=== PATIENT | female | born 1950 | race Caucasian/White ===

== ENCOUNTER 2016-10-16 13:34 | Emergency (ER) | payer OTHER, MEDICARE ==
[~2016-10-16] VITALS: Ht 167.6 cm; Wt 61.2 kg
[2016-10-16 14:02] LABS: ABSOLUTE NEUTROPHILS 3.6 thou/uL (1.4-8.2); BASOPHILS 0.6 % (0.0-2.0); EOSINOPHILS 3.8 % (0.0-3.0); HEMATOCRIT 42.3 % (37.0-47.0); HEMOGLOBIN 14.4 gm/dL (12.0-15.0); LYMPHOCYTES 32.8 % (24.0-44.0); MCH 33.2 pg (26.0-34.0); MCV 97.6 fL (80.0-100.0); MONOCYTES 8.8 % (1.0-8.0); PLATELET COUNT 225 thou/uL (150-400); RBC 4.33 mil/uL (4.20-5.00); RDW 14.4 % (10.5-14.5); WBC 6.6 thou/uL (4.0-11.0)
[2016-10-16 14:02] LABS: ABG SAMPLE TYPE ARTERIAL; BE(vivo) -1.6 mmol/L (-2 to +3); LACTATE 2.65 mmol/L (0.5-2.0); O2(CT) 18.7 mL/dL (15.0-23.0); O2Hb 92.1 % (92.0-98.0); PCO2 33.9 mmHg (35.0-45.0); PO2 74.7 mmHg (80.0-100.0); STICK SITE R.RADIAL; sO2 95.5 % (92.0-98.0)
[2016-10-16 14:04] LABS: MANUAL DIFF NO
[2016-10-16 14:10] LABS: CALCIUM 9.5 mg/dL (8.5-10.1); CREATININE 0.8 mg/dL (0.6-1.0); POTASSIUM 3.9 mmol/L (3.5-5.1)
[2016-10-16] MEDS ORDERED: PROVENTIL HFA6.7 G1 INH (15:18)
[2016-10-16] MEDS ORDERED: PREDNISONE 20 M20 MG PO (15:18)
[2016-10-16] MEDS ORDERED: TUSSIONEX PENN473 ML PO (15:18)
[2016-10-16 16:00] VITALS: BP 132/79
== END 2016-10-16 16:01 | disposition home or self-care (01) ==
LOC: ER 13:34 → EDBD 13:34 → ER 16:01
PROVIDERS: Emergency Medicine
DX: J04.0 Acute laryngitis (principal); F17.210 Nicotine dependence, cigarettes, uncomplicated

== ENCOUNTER → 2019-12-19 | Outpatient (CLI) | payer OTHER, MEDICARE ==
[~2019-12-19] MED LIST: PREDNISONE 20 M20 MG PO; PROVENTIL HFA6.7 G1 INH; TUSSIONEX PENN473 ML PO
== END ==
LOC: RAD 12:47
PROVIDERS: ATTEND Psychiatry & Neurology Neuromuscular Medicine
DX: M51.36 Other intervertebral disc degeneration, lumbar region (principal); M41.86 Other forms of scoliosis, lumbar region; M43.26 Fusion of spine, lumbar region; M47.816 Spondylosis without myelopathy or radiculopathy, lumbar region; I70.0 Atherosclerosis of aorta

== ENCOUNTER → 2020-07-14 | Outpatient (CLI) | payer OTHER ==
[2020-07-14 11:28] LABS: CREATININE 1.1 mg/dL (0.6-1.0)
== END | disposition home or self-care (01) ==
LOC: CAT 09:53
PROVIDERS: ATTEND Specialist
DX: M54.5 Low back pain (principal); M79.605 Pain in left leg; G95.89 Other specified diseases of spinal cord

== ENCOUNTER → 2020-08-27 | Outpatient (CLI) | payer OTHER ==
[~2020-08-27] MED LIST changes: +DESYREL300 MG PO; +EFFEXOR XR150 MG PO; +KLONOPIN1 MG PO; +MIRALAX119 GM PO; +VALACYCLOVIR1000 MG PO; +VITAMIN D350 MCG PO; +ZYRTEC10 M4 PO
== END ==
LOC: LAB 07:32
PROVIDERS: ATTEND Specialist
DX: Z01.812 Encounter for preprocedural laboratory examination (principal); Z20.822 Contact with and (suspected) exposure to COVID-19

== ENCOUNTER → 2020-08-29 | Outpatient (CLI) | payer OTHER | LOC: CAT 09:16 | PROVIDERS: ATTEND Specialist | DX: M51.36 Other intervertebral disc degeneration, lumbar region (principal); M43.16 Spondylolisthesis, lumbar region; M48.061 Spinal stenosis, lumbar region without neurogenic claudication; M47.815 Spondylosis without myelopathy or radiculopathy, thoracolumbar region; M41.86 Other forms of scoliosis, lumbar region ==

== ENCOUNTER 2020-09-01 06:09 | Inpatient (IN) | payer OTHER ==
[2020-08-27 12:53] LABS: HEMATOCRIT 48.3 % (37.0-47.0); HEMOGLOBIN 15.6 gm/dL (12.0-15.0); MCH 29.4 pg (26.0-34.0); MCHC 32.2 g/dL (28.0-37.0); MCV 91.4 fL (80.0-100.0); RBC 5.29 mil/uL (4.20-5.00); RDW 15.3 % (10.5-14.5); WBC 7.7 thou/uL (4.0-11.0)
[2020-08-27 12:54] LABS: URINE BILIRUBIN NEGATIVE (Negative); URINE BLOOD NEGATIVE (Negative); URINE CLARITY CLEAR; URINE COLOR YELLOW; URINE GLUCOSE-RANDOM* NEGATIVE (Negative); URINE KETONES NEGATIVE (Negative); URINE LEUKOCYTES-REFLEX NEGATIVE (Negative); URINE NITRITE-REFLEX NEGATIVE (Negative); URINE PROTEIN (DIPSTICK) NEGATIVE (Negative); URINE UROBILINOGEN 0.2 E.U./dl (0.2-1.0)
[2020-08-27 13:08] LABS: APTT 26.4 Seconds (24.5-32.8); INR 0.94; PROTIME 10.3 Seconds (9.3-11.4)
[2020-08-27 13:15] LABS: ALBUMIN 3.9 g/dL (3.4-5.0); CALCIUM 9.6 mg/dL (8.5-10.1); CREATININE 0.9 mg/dL (0.6-1.0); POTASSIUM 4.5 mmol/L (3.5-5.1); TOTAL BILIRUBIN 0.3 mg/dL (0.2-1.0); TOTAL PROTEIN 6.8 g/dL (6.4-8.2)
--- NOTE | 2020-08-27 16:35 | EKG ---
[address] [address] ELECTROCARDIOGRAM REPORT Name: BOUBACAR GARCIA Room #: PRE IN ..#: [id number] Admission: Attend Phys: Brent Olson, Discharge: Date of : 46 Report #: [id number] [facility] Test Date: 2020-08-27 Test Time: 12:47:17 Pat Name: BOUBACAR GARCIA Department: Room: Gender: F Branch Account Executive: KOBI : 1950 Requested By: Brent Olson Order Number: [id number] MD: Catrachito Marrero Measurements Intervals [place] Rate: 98 P: 41 WA: 169 QRS: -86 QRSD: 87 T: 77 QT: 360 QTc: 460 Interpretive Statements Sinus rhythm Abnormal R-wave progression, late transition Inferior infarct, old No previous ECG available for comparison Electronically Signed On 08-27-2020 16:34:56 CDT by Catrachito Marrero [email or web address] <ELECTRONICALLY SIGNED> By: Catrachito Marrero MD, [facility] 08/27/20 1634 1247 1247 Catrachito Marrero MD, FACC /EPI
[2020-09-01] VITALS (7 sets, daily range): BP systolic 115–133; BP diastolic 70–92
[~2020-09-01] VITALS: Ht 167.6 cm; Wt 64.4 kg
--- NOTE | 2020-09-01 18:24 | NUR ---
ASSUMED PT CARE AT 1530. PT IS DROWSY. PT HAD LAMINECTOMY TODAY. STARTED KEYBOARD OPERATOR PUMP DURING TRANSFER FROM PACU DUE TO HAVING DIFFICULTY SETTING KEYBOARD OPERATOR IN PACU. PT HAS SHAUNA THOMPSON AND DRAIN 75ML TODAY. PT HAS 2L O2 NC. PT HAS CONTINUOUS PULSE OX MONITOR. GIVEN APPLE JUICE PER PT REQUEST BUT VERY SLEEPY. PT SISTER AT THE BEDSIDE. PT ON THE BED SLEEPING, BED ON THE LOWEST POSITION, SIDE RAILS UP, CALL LIGHT WITHIN REACH. WILL CONTINUE TO MONITOR PT. FOLLOW POC.
--- NOTE | 2020-09-01 23:00 | NUR ---
ASSUMED PT CARE AT AROUND 1920 HRS. PT OBSERVED SLEEPING ON AND OFF, C/O 7/10 PAIN. PHILLIPS T D/D WITH GOOD U/O.MORPHINE AVIONICS ELECTRICAL ENGINEER PUMP AVAILABLE. FELICITY NOTED TO LOWER BACK WITH SANGUINOUS DRAINAGE, ICE ESTEE BEING USED, DRSG INTACT.CARE HANDED OVER TO LAURA CARRILLO AT AROUND 2300.
--- NOTE | 2020-09-01 23:23 | NUR ---
PT RESTING IN BED. PT VERBALIZED FEELING GROGGY AND HAVING A HARDER TIME WAKING UP FROM THIS PROCEDURE. PT DECLINED KLONOPIN AND TRAZADONE. PT IS AOX4. PT DISCUSSED CONCERN OF TAKING TO [facility] WITH FELL CUTTER PUMP, PT REMINDED THE PUMP WOULD NOT ALLOW HER TO GIVE HERSELF TO [facility] AND THAT HER O2 LEVEL WAS ALSO BEING MONITORED. IVF INTACT. TEDS ON. BACK DRESSING DRY AND INTACT, FELICITY BLOODY DRAINAGE. PHILLIPS TO DD. O2 PER NC. BED ALARM ON.
--- NOTE | 2020-09-02 00:34 | NUR ---
RN FROM 4S AND RN FROM 5N MONITORING DIRECTOR INVESTOR RELATIONS SETTINGS AND ADJUSTMENTS.
--- NOTE | 2020-09-02 03:02 | NUR ---
PT AWAKENED AROUND 0100 REPORTING SHE FELT BETTER.
[2020-09-02 04:41] VITALS: BP 113/73
[2020-09-02 05:56] LABS: ABSOLUTE NEUTROPHILS 8.5 thou/uL (1.4-8.2); BASOPHILS 0.5 % (0.0-2.0); HEMATOCRIT 36.2 % (37.0-47.0); HEMOGLOBIN 11.7 gm/dL (12.0-15.0); LYMPHOCYTES 14.4 % (24.0-44.0); MCH 29.6 pg (26.0-34.0); MCHC 32.3 g/dL (28.0-37.0); MCV 91.7 fL (80.0-100.0); MONOCYTES 7.5 % (1.0-8.0); PLATELET COUNT 230 thou/uL (150-400); POLYS 77.6 % (36.0-66.0); RBC 3.95 mil/uL (4.20-5.00)
[2020-09-02 06:20] LABS: CALCIUM 7.9 mg/dL (8.5-10.1); CREATININE 0.9 mg/dL (0.6-1.0); MAGNESIUM 1.3 mg/dL (1.8-2.4)
[2020-09-02 07:15] VITALS: BP 143/81
--- NOTE | 2020-09-02 13:56 | NUR ---
ASSESSMENT: CM REVIEWED CHART AND SPOKE WITH PATIENT AT THE BEDSIDE ALONG WITH HER SISTER. PT IS S/P LUMBAR FUSION. PT REPORTS THAT SHE LIVES IN A HOUSE WITH HER COUSIN WHO HAS ASPERGS AND CANNOT DO MUCH TO HELP HER. PT REPORTS SHE IS REQUESTING POST ACUTE CARE AT DISCHARGE AND PREFERS TO GO [facility] IF POSSIBLE IT IS CLOSE TO HER HOME. CM REACHED TO [facility] AND FAXED REFERRAL AND AWAITING TO HEAR BACK. PT REPORTS SHE HAS NO DME AT HOME. PT REPORTS SHE HAS ABOUT 13-14 STEPS WITH HANDRAIL IN THE HOME. PT WILL CONITNUE TO WORK WITH THERAPY. CM WILL CONTINUE TO FOLLOW TO ASSIST NEEDED.
[2020-09-02 16:20] VITALS: BP 152/78
--- NOTE | 2020-09-02 18:30 | NUR ---
PT ASSESSED AT START OF SHIFT. DR. PRESLEY AND PA IN EARLY AM TO SEE PT. RECEPTION SPECIALIST PUMP DC'D AND ORAL MEDS STARTED W/ GOOD RELIEF. 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 IV BENEDRYL GIVEN WHICH HELPED WELL SARNA CREAM. PT ALSO HEAVY SMOKER AND HAVING ANXIETY FROM THAT. AMBULATED W/ THERAPYIST AND DID WELL-SAT UP IN CHAIR FOR AN HOUR TWICE. HOPING TO GO TO [facility] BY HER HOUSE.
[2020-09-02 19:00] VITALS: BP 146/84
[2020-09-03 04:08] VITALS: BP 133/74
--- NOTE | 2020-09-03 05:13 | NUR ---
PT TOOK ALL HS MEDS WITHOUT ANY ISSUES, C/O OF HAVING NOT SLEPT FOR DAYS AND THUS HAVING RESTLESSNESS WHICH SOMETIMES CAUSES THE ITCHING AND HIVES. PT HAS BEEN ABLE TO SLEEP SOME. FELICITY WITH MODERATE AMTS OF OUTPUT >50 IN 8HRS.ALAN DC/D THIS AM. PT ABLE TO LOG ROLL, DRSG INTACT TO BACK, SMALL DRAINAGE NOTED. AFEBRILE.CALLS WITH NEEDS, CONTINUES ON IV FLUIDS.
[2020-09-03 07:25] VITALS: BP 139/77
--- NOTE | 2020-09-03 15:09 | NUR ---
ON-GOING ASSESSMENT: CM REVIEWED CHART. CM SPOKE WITH LIASON FROM [facility] WHO REPORTS THAT PATIENT IS TOO HIGH LEVEL AND SHE CANNOT ACCEPT PATIENT. CM DISCUSSED WITH PT AND HER SISTER. CM DISCUSSED SNF OPTIONS WITH PATIENT. PT WANTED REFERRAL SENT TO [facility]. CM FAXED REFERRAL AND NOTIFIED LIASON TO SEEK AUTH. LIASON STATING THEY HAVE INSURANCE AUTH AND CAN TENTATIVELY ACCEPT FOR TOMORROW IF SHE IS ABLE TO DISCHARGE. CM WILL CONTINUE TO FOLLOW TO ASSIST NEEDED.
[2020-09-03 16:08] VITALS: BP 152/85
[2020-09-03 16:43] LABS: URINE BILIRUBIN NEGATIVE (Negative); URINE BLOOD NEGATIVE (Negative); URINE CLARITY CLEAR; URINE COLOR YELLOW; URINE GLUCOSE-RANDOM* NEGATIVE (Negative); URINE KETONES NEGATIVE (Negative); URINE LEUKOCYTES-REFLEX NEGATIVE (Negative); URINE NITRITE-REFLEX NEGATIVE (Negative); URINE PROTEIN (DIPSTICK) NEGATIVE (Negative); URINE UROBILINOGEN 0.2 E.U./dl (0.2-1.0)
--- NOTE | 2020-09-03 19:12 | NUR ---
ASSUMED PT CARE THIS AM. PT IS ALERT & ORIENTED X4. PT HAS IV SITE ON R FA NS RUNNING @ 75ML/HR. SEND UA THIS AFTERNOON. PT WAS ELEVATED THIS MORNING AND GIVEN TYLENOL. PT C/O OF CONSTIPATION AND GIVEN SUPPOSITORY ORDERED. PT WALK WITH PT TODAY. PT IS ROOM AIR. PT C/O OF PAIN AND ITCHING ANG GIVEN BENDRYL AND PAIN MEDICATION. PT HAD BM TODAY. PLACED DRESSING ON THE BACK DR ORDERED. PT SISTER AT THE BEDSIDE. BED ON THE LOWEST POSITION, SIDE RAILS UP, CALL LIGHT WITHIN REACH. WILL CONTINUE TO MONITOR PT. ENDORSE NIGHT NURSE.
[2020-09-03 19:35] VITALS: BP 146/63
--- NOTE | 2020-09-04 04:49 | NUR ---
PT ALERT AND ORIENTED. DRSG TO BACK IS C/D/I, FELICITY AMOUNTS DECREASING BUT STILL >50/8HRS.BEEN AFEBRILE. NO MUCH ITCHING. VOIDING PER THE BATHROOM. PROGRESSING TOWARDS CARE GOALS.
[2020-09-04 05:03] VITALS: BP 109/59
[2020-09-04 07:54] VITALS: BP 128/70
--- NOTE | 2020-09-04 10:58 | NUR ---
on-going assessment: CM REVIEWED CHART AND SPOKE WITH PATIENT AND HER SISTER. PT IS AUTHORIZED BY INSURANCE FOR SNF. CM SPOKE WITH LIASON FROM [facility] WHO REPORTS THEY HAVE A BED TODAY. CM SPOKE WITH BEDSIDE RN AND PT IS STILL HAVING INCREASED OUTPT FROM [facility]. PLANS OF POSSIBLE DISCHARGE TOMORROW. CM UPDATED LIASON AT [facility]. SHE STATES PENDING BED AVAILBILITY THEY WILL BE ABLE TO ACCEPT TOMORROW (AUTH IS APPROVED THROUGH TOMORROW). CM WILL CONTINUE TO FOLLOW TO ASSIST NEEDED.
[2020-09-04] MEDS ORDERED: OXYCODONE HCL 55 MG PO (13:09)
[2020-09-04] MEDS ORDERED: CYCLOBENZAPRINE5 MG PO (13:09)
[2020-09-04] MEDS ORDERED: PEPCID20 MG PO (13:09)
--- NOTE | 2020-09-04 14:45 | NUR ---
Assumed care of pt at 0700. Pt a&ox4. Pain controlled with prn pain meds. Dressing c/d/i. J.P. drain removed per dr asencio. Pt transferred to [facility]. Report given to Jennifer CARRILLO. Pt transported by her sister. Call light within reach. Fall precautions in place.
== END 2020-09-04 14:49 | DRG 460 ==
LOC: TBA 06:09 → 4S 06:09 → PRE 10:16 → 4S 16:10
PROVIDERS: Hospitalist; Nurse Practitioner; ADMIT Specialist; ATTEND Specialist
PROC: 0SG10K1 Fusion of 2 or more Lumbar Vertebral Joints with Nonautologous Tissue Substitute, Posterior Approach, Posterior Column, Open Approach (ICD-10-PCS; principal; 2020-09-01)
PROC: 01NR0ZZ Release Sacral Nerve, Open Approach (ICD-10-PCS; principal; 2020-09-01)
PROC: 0SG30K1 Fusion of Lumbosacral Joint with Nonautologous Tissue Substitute, Posterior Approach, Posterior Column, Open Approach (ICD-10-PCS; principal; 2020-09-01)
PROC: 01NB0ZZ Release Lumbar Nerve, Open Approach (ICD-10-PCS; principal; 2020-09-01)
PROC: 0QP004Z Removal of Internal Fixation Device from Lumbar Vertebra, Open Approach (ICD-10-PCS; principal; 2020-09-01)
DX: M48.061 Spinal stenosis, lumbar region without neurogenic claudication (principal); D84.9 Immunodeficiency, unspecified; G89.29 Other chronic pain; M54.9 Dorsalgia, unspecified; M53.2X7 Spinal instabilities, lumbosacral region; J44.9 Chronic obstructive pulmonary disease, unspecified; Z96.641 Presence of right artificial hip joint; Z60.2 Problems related to living alone; H57.89 Other specified disorders of eye and adnexa; F43.10 Post-traumatic stress disorder, unspecified; Z88.6 Allergy status to analgesic agent; Z79.899 Other long term (current) drug therapy
CPT/HCPCS: 10102; 50010; 50101; 50331; 50402; 50850; 51878; 52258; 55340; 56525; 56528; 56532; 57103; 58457; 58544; 58545; 58546; 58567; 58715; 58723; 58724; 58725; 58726; 58727; 58728; 62110; 62900; 70005